=== PATIENT | male | born 1960 | race Caucasian/White ===

== ENCOUNTER → 2024-04-11 14:21 | Outpatient (REF) | payer OTHER, SELFPAY | LOC: RAD 14:21 | PROVIDERS: ATTENDING PHYSICIAN Surgery; FAMILY PHYSICIAN Registered Nurse | DX: D48.5 Neoplasm of uncertain behavior of skin (principal) | CPT/HCPCS: 72170; 73630 ==

== ENCOUNTER → 2024-11-19 14:08 | Outpatient (REF) | payer OTHER, SELFPAY | LOC: RAD 14:08 | PROVIDERS: ATTENDING PHYSICIAN Registered Nurse | DX: M21.932 Unspecified acquired deformity of left forearm (principal) | CPT/HCPCS: 73110 ==